=== PATIENT | female | born 1985 | race Caucasian/White ===

== ENCOUNTER 2017-02-22 19:49 | Emergency (ER) | payer OTHER ==
[2017-02-22 20:10] VITALS: BP 161/75
--- NOTE | 2017-02-22 21:56 | ED EYE COMPLAINT ---
History of Present Illness General Chief Complaint: Eye Problems Stated Complaint: PT LEFT EYE HAS A CUT OVER IT Source: patient Exam Limitations: no limitations Vital Signs & Intake/Output Vital Signs & Intake/Output Vital Signs Date Time Temp Pulse Resp B/P B/P Pulse O2 O2 Flow FiO2 Mean Ox Delivery Rate 02/22 2010 97.3 76 16 161/75 98 Room Air ED Intake and Output 02/23 0000 02/22 1200 Intake Total 120 Output Total Balance 120 Intake, Oral 120 Patient 155 lb Weight Allergies Coded Allergies: latex (Intermediate, RASH 02/22/17) sodium oxybate (From XYREM) (Intermediate, TACHY 02/22/17) moxifloxacin (From AVELOX) (TACHY 02/22/17) Uncoded Allergies: Med Allergies N Triage Note: PT WAS HANGING A PICTURE THAT FELL OFF THE WALL AND HIT THE OUTSIDE CORNER OF HER LEFT EYE. SMALL SUPERFICIAL CUT NOTED, BLEEDING CONTROLLED AND MILD BRUISING NOTED. -LOC. PT NOW C/O NAUSEA, HEADAHCE AND FEELING SLEEPY. ACCIDENT OCCURRED APPROX 2 HOURS AGO. HX NARCOLEPSY. CUT CLEANED AND BANDAID APPLIED IN TRIAGE. TOOK MOTRIN 800 1.5 HOURS AGO WITHOUT RELIEF. MEDICATED WITH TYLENOL IN TRIAGE Triage Nurses Notes Reviewed? yes Onset: Abrupt Duration: hour(s): Timing: single episode today Severity: moderate Severity Numbers: 4 Modifying Factors: Improves With: medication. Worsens With: movement. Left Eye Associated Symptoms: pain, sensitivity to light, orbital swelling : No Patient currently breastfeeds: No HPI: 31-year-old female with history of narcolepsy presents to emergency department complaining of left eye pain. Patient states that prior to arrival a 6 x 8' chalkboard fell from about a foot above her landing on the left side of her face just lateral to her left eye. She did not fall or blackout. She notes small cuts near her left eye with swelling and ecchymosis under her left eye. She also has noted floaters in her left eye since the trauma. She currently has pain at 4/10 in her left eye as well as a headache 4/10, she states that her pain was reduced with Motrin and Tylenol. She is also complaining of nausea without vomiting, dizziness, sensitivity to bright light, pain with extraocular movement, numbness sensation on the left side of her face. She denies chest pain, dyspnea, loss of consciousness, changes, flashes of light in her eyes, diplopia, curtain/veil in vision, neck pain, back pain. She wears glasses for distance vision, she sees occupational therapy supervisor at [facility]. (KENNETH FRITZ PA-C) Past History Travel History Traveled to [place] past 21 day No Medical History Any Pertinent Medical History? see below for history Neurological: NARCOLEPSY EENT: TMJ Cardiovascular: NONE Respiratory: NONE Gastrointestinal: GERD Hepatic: NONE Renal: NONE Musculoskeletal: NONE Psychiatric: NONE Endocrine: NONE Blood Disorders: NONE OFFICE CLIN ASST/Reproductive: ENDOMETRIOSIS MIRENA IUD Surgical History Surgical History: non-contributory Psychosocial History What is your primary language Nicaraguan Tobacco Use: Current Daily Use Daily Tobacco Use Amount/Type: => 5 Cigarettes daily ETOH Use: occasional use Illicit Drug Use: denies illicit drug use Family History Hx Contributory? No (KENNETH FRITZ PA-C) Review of Systems Review of Systems Constitutional: Reports: no symptoms. Comments Review of systems: See HPI, All other systems negative. Constitutional, no chills fever or weight loss HEENT: No visual changes +floaters, + left eye pain no sore throat no congestion Cardiovascular: No chest pain ,palpitation , orthopnea or ankle swelling Skin, +ecchymosis +laceration Respiratory: No dyspnea cough sputum GI: + nausea no vomiting : No dysuria No hematuria Muscle skeletal: no back pain, no neck pain, Neurologic:+left facial numbness no confusion Psych: No stress anxiety or depression,. Heme/endocrine: no bleeding no polyuria or polydipsia Immunology: No splenectomy or history of AIDS (KENNETH FRITZ PA-C) Physical Exam General Appearance: well developed/nourished, no apparent distress, alert, awake General Inspection: mild ecchymosis of lower lid and lateral to left eye with mild amount of swelling Eyelid: ecchymosis, mild swelling of lateral upper and lower lid Conjunctiva/Sclera: normal inspection Cornea: normal inspection EOM: intact Pupil: normal accommodation, normal pupil, PERRL General Inspection: normal inspection Eyelid: normal inspection Conjunctiva/Sclera: normal inspection Cornea: normal inspection EOM: intact Pupil: normal accommodation, normal pupil, PERRL Physical Exam Head: left orbital tenderness with mild ecchymosis and 2 small superficial abrasions Ears: Bilateral: canal normal, Tympanic normal. Nose: normal inspection Mouth/Throat: normal mouth inspection Neck: normal inspection, supple, full range of motion, no midline tenderness Cardiovascular/Respiratory: normal breath sounds, regular rate/rhythm, no respiratory distress Neurologic/Psych: awake, alert, oriented x 3, decreased sensation on left face compared to right, CN 2-12 otherwise normal Skin: ecchymosis, swelling, and 2 abrasions lateral to left eye as described above (LAM JASMINE,KENNETH WILKERSON) Progress Differential Diagnosis: corneal abrasion, detached retina, globe rupture, concussion, ICH., orbital fracture Plan of Care: Orders Procedure Date/time Status URINE 02/22 2133 Complete Laboratory Tests 02/22/172142: Urine Test NEGATIVE Given referral tenderness with ecchymosis and swelling will obtain CT of head and maxillofacial scan to rule out fracture and bleeding. Other than mild left- sided numbness reported by patient during exam she is neurologically intact. She is in no acute distress, she is sitting comfortably on stretcher, her vital signs are stable. The patient's head CT results are within normal limits, no acute findings. Her imaging results were discussed with her in detail. The patient feels ready to go home. She was educated on the signs and symptoms of concussion. She will return with any worsening symptoms or concerns. She will follow up with her eye doctor this week. The patient is in agreement with the plan of care. (LAM JASMINE,KENNETH WILKERSON) Diagnostic Imaging: Viewed by Me: CT Scan. Discussed w/RAD: CT Scan. Radiology Impression: PATIENT: KRISTEL CROCKER PRESENT AGE: 31 PATIENT ACCOUNT NO: [id number] : 86 LOCATION: [facility] ORDERING PHYSICIAN: KENNETH FRITZ PA-C SERVICE DATE: 02/22/17-2132 EXAM TYPE: CAT - CT HEAD WO IV CONTRAST; CT MAXILLOFACIAL W/O CON CT HEAD WITHOUT IV CONTRAST CT MAXILLOFACIAL WITHOUT IV CONTRAST INDICATION: Left orbital pain headache and ecchymosis with nausea. Evaluate for fracture. COMPARISON: None. TECHNIQUE: Multidetector CT acquisitions of the head, maxillofacial region, and cervical spine were obtained without IV contrast. Multiplanar reformats were acquired and utilized for image interpretation. ESTIMATED DOSE: DLP 1249 mGy-cm. FINDINGS: HEAD: There is no evidence of acute intracranial hemorrhage or territorial infarction. No abnormal mass effect or midline shift is seen. Garcia to white matter differentiation is well preserved. No extra-axial fluid collections are identified. The ventricles are normal in size. There is no abnormal attenuation within the brain parenchyma. The osseous structures and soft tissues are normal. The mastoid air cells and visualized portions of the paranasal sinuses are well aerated. MAXILLOFACIAL: The mandible, maxilla, pterygoid plates, nasal bones, zygomatic arches, paranasal sinus toussaint, and bony orbits are intact. No acute osseous abnormality within the maxillofacial region. The paranasal sinuses and mastoid air cells remain well-aerated and clear. No significant soft tissue findings. Periorbital soft tissues are symmetric in appearance without evidence of associated edema or soft tissue fluid collections. IMPRESSION: No evidence of an acute process. DICTATED BY: MECCA AQUINO MD DATE/TIME DICTATED:02/22/172232 VENTILATING ENGINEER:AVI DATE/ TIME TRANSCRIBED:02/22/172232 CONFIDENTIAL, DO NOT COPY WITHOUT APPROPRIATE AUTHORIZATION. <Electronically signed in Other Vendor System> SIGNED BY: MECCA AQUINO MD 02/22/17 9713 (LAM JASMINE,KENNETH WILKERSON) Departure Departure Disposition: HOME OR SELF CARE Condition: Stable Clinical Impression Primary Impression: Left eye pain Secondary Impressions: Concussion, Floaters Referrals: BOLIVAR BANEGAS,CEEC Salazar (PCP/Family) Additional Instructions: Take Tylenol or Motrin as prescribed as needed for pain. Follow-up with your eye doctor, call office tomorrow to make an appointment for this week regarding your new floaters and eye pain. Monitor for signs of worsening concussion symptoms. Inform your primary care doctor that you were seen and evaluated today. Return with any worsening symptoms or concerns. Departure Forms: Customer Survey General Discharge Information (LAM JASMINE,KENNETH WILKERSON) PA/ORDNANCE ARTIFICER Co-Sign Statement Statement: ED Attending supervision documentation- [] I saw and evaluated the patient. I have also reviewed all the pertinent lab results and diagnostic results. I agree with the findings and the plan of care as documented in the PA's/ORDNANCE ARTIFICER's documentation. [x] I have reviewed the ED Record and agree with the PA's/ORDNANCE ARTIFICER's documentation. [] Additions or exceptions (if any) to the PAs/ORDNANCE ARTIFICER's note and plan are summarized below: [] (WATSON BANEGAS,KEO Prado)
--- NOTE | 2017-02-22 22:44 | CT SCAN REPORT ---
CT HEAD WITHOUT IV CONTRAST CT MAXILLOFACIAL WITHOUT IV CONTRAST INDICATION: Left orbital pain headache and ecchymosis with nausea. Evaluate for fracture. COMPARISON: None. TECHNIQUE: Multidetector CT acquisitions of the head, maxillofacial region, and cervical spine were obtained without IV contrast. Multiplanar reformats were acquired and utilized for image interpretation. ESTIMATED DOSE: DLP 1249 mGy-cm. FINDINGS: HEAD: There is no evidence of acute intracranial hemorrhage or territorial infarction. No abnormal mass effect or midline shift is seen. Garcia to white matter differentiation is well preserved. No extra-axial fluid collections are identified. The ventricles are normal in size. There is no abnormal attenuation within the brain parenchyma. The osseous structures and soft tissues are normal. The mastoid air cells and visualized portions of the paranasal sinuses are well aerated. MAXILLOFACIAL: The mandible, maxilla, pterygoid plates, nasal bones, zygomatic arches, paranasal sinus toussaint, and bony orbits are intact. No acute osseous abnormality within the maxillofacial region. The paranasal sinuses and mastoid air cells remain well-aerated and clear. No significant soft tissue findings. Periorbital soft tissues are symmetric in appearance without evidence of associated edema or soft tissue fluid collections. IMPRESSION: No evidence of an acute process.
== END 2017-02-22 23:09 ==
LOC: ERH 19:49
DX: S06.0X0A Concussion without loss of consciousness, initial encounter (principal); H43.392 Other vitreous opacities, left eye; W20.8XXA Other cause of strike by thrown, projected or falling object, initial encounter; Y92.9 Unspecified place or not applicable; Y93.9 Activity, unspecified
CPT/HCPCS: 81025; J3101